=== PATIENT | male | born 1975 | race Caucasian/White ===

== ENCOUNTER 2021-03-13 20:28 | Emergency (ER) | payer SELFPAY ==
[2021-03-13 20:34] VITALS: BP 138/79; PULSE 91; RESP 22; TEMP 98.3
--- NOTE | 2021-03-13 21:29 | ED ---
Recheck HPI - General Chief Complaint: Recheck/Abnormal Lab/Rx Stated Complaint: Covid Screening Source: patient Mode of arrival: ambulatory Limitations: no limitations - History of Present Illness Initial Comments: Patient presents to the emergency department today for COVID-19 testing in order to cross border into [place]. Denies any current symptoms or recent exposures. Patient denies need for further medical screening or examination. - Related Data Allergies Allergy/AdvReac Type Severity Reaction Status Date / Time No Known Allergies Allergy Verified 03/13/21 20:34 Review of Systems ROS Statement: Those systems with pertinent positive or pertinent negative responses have been documented in the HPI. ROS Other: All systems not noted in ROS Statement are negative. Past Medical History Past Medical History: No Reported History History of Any Multi-Drug Resistant Organisms: None Reported Past Surgical History: No Surgical Hx Reported Past Psychological History: No Psychological Hx Reported Smoking Status: Former smoker Past Alcohol Use History: None Reported Past Drug Use History: None Reported General Exam Limitations: no limitations General appearance: alert, in no apparent distress Neurological exam: Present: alert, oriented X3 Psychiatric exam: Present: normal affect, normal mood Course Vital Signs 03/13/21 20:30 Temperature 98.3 F Pulse Rate 91 Respiratory 22 Rate Blood Pressure 138/79 O2 Sat by Pulse 98 Oximetry Medical Decision Making - Medical Decision Making Patient presented for COVID-19 testing in order to cross border into [place]. Did not have any symptoms. Declined any need for further exam or screening. Test results were negative. Patient was given copy of result and discharged. My attending is Dr. Joya. - Lab Data Lab Results 03/13/21 Range/Units 20:36 Coronavirus (PCR) Not Detected (Not Detectd) Disposition Clinical Impression: Encounter for laboratory testing for COVID-19 virus Disposition: HOME SELF-CARE Condition: Good Instructions (If sedation given, give patient instructions): Coronavirus Disease 2019 (COVID-19) Is patient prescribed a controlled substance at d/c from ED?: No Referrals: Nonstaff,Physician [Primary Care Provider] - 1-2 days Time of Disposition: 21:29
== END 2021-03-13 21:34 | disposition home or self-care (01) ==
LOC: EC 20:28
DX: Z11.52 Encounter for screening for COVID-19 (principal); Z20.822 Contact with and (suspected) exposure to COVID-19; Z87.891 Personal history of nicotine dependence
CPT/HCPCS: 87635; 99282